=== PATIENT | male | born 1980 | race Caucasian/White ===

== ENCOUNTER 2016-07-21 07:50 | Observation (INO) ==
--- NOTE | 2016-07-21 08:01 | Emergency Department Note ---
Disposition Clinical Impression: SOB (shortness of breath) Hypertension Qualifiers: Hypertension type: renovascular hypertension Qualified Code(s): I15.0 - Renovascular hypertension Disposition: Admitted As Inpatient Condition: Good Referrals: Yandy Ahumada MD [Primary Care Provider] - Forms: ED Satisfaction Letter Time of Disposition: 09:17 General Adult HPI - General Chief complaint: ED Shortness of Breath/Dyspnea Stated complaint: IRENE Time Seen by Provider: 07/21/16 07:55 Source: patient, EMS Limitations: no limitations Nursing Notes Reviewed: Yes Vital Signs Reviewed: Yes - History of Present Illness HPI Narrative: 3 week history of congestion and shortness of breath. Has tried Z-Kameron twice with no relief. Complaining of increased abdominal girth. Is a dialysis patient. Pain Scale: 5 - Related Data Home Medications Medication Instructions Recorded Confirmed Aspirin 81 mg PO DAILY 12/17/14 04/29/15 Furosemide [Lasix] 80 mg PO HS 12/17/14 04/29/15 Lisinopril [Zestril] 10 mg PO DAILY 12/17/14 04/29/15 Metoprolol [Lopressor] 100 mg PO BID 12/17/14 04/29/15 Renal Vitamin [Renal Caps Softgel] 1 mg PO DAILY 12/17/14 04/29/15 Amlodipine [Norvasc] 5 mg PO DAILY 04/20/15 04/29/15 Calcitriol 0.25 mcg PO DAILY 04/20/15 04/29/15 Calcium Acetate [Phos-LO] 3,335 mg PO TIDWM 04/20/15 04/29/15 Darbepoetin [Aranesp] 200 mcg IV QMONTH 04/20/15 04/29/15 Omeprazole [PriLOSEC] 20 mg PO DAILY 04/20/15 04/29/15 Simvastatin [Zocor] 20 mg PO DAILY 04/20/15 04/29/15 Previous Rx's Medication Instructions Recorded OxyCODONE/APAP 5/325 [Percocet 1 each PO Q6HR PRN #30 tablet 04/20/15 5/325 MG] Docusate [Colace] 100 mg PO BID #60 capsule 04/26/15 Ondansetron [Zofran] 8 mg PO Q4H #30 tablet 03/27/16 Amoxicillin 875 mg PO BID #20 tablet 05/27/16 GuaiFENesin/Dextromethorphan 5 ml PO Q6H PRN #120 ml 05/27/16 [Robitussin Cough-Chest Dm Liq] Loratadine/Pseudophed (12 HR) 1 each PO BID #20 tab.er.12h 05/27/16 [Claritin D (12HR)] Allergies Allergy/AdvReac Type Severity Reaction Status Date / Time No Known Allergies Allergy Verified 05/27/16 12:01 All systems ED: reviewed and negative except as stated. Constitutional: Denies: fever, chills ENT ED: Reports: congestion Cardiovascular: Denies: chest pain, palpitations, syncope Respiratory: Reports: cough, dyspnea. Denies: wheezes Gastrointestinal: Reports: other (Feels like his abdomen is larger than normal.) . Denies: abdominal pain, nausea, vomiting, diarrhea Genitourinary: Denies: urgency, dysuria, frequency, hematuria Musculoskeletal: Denies: back pain, neck pain Neurological: Denies: headache Past Medical History - Past Medical History Medical history: Reports: diabetes, GERD, hypertension, renal disease Surgical history: Reports: cholecystectomy, herniorrhaphy, splenectomy, other Psychiatric history: Reports: no psych history - Social History Smoking Status: Never smoker Smokeless Tobacco Status: No Alcohol use: Reports: none Drug use: Reports: marijuana Physical Exam - General Limitations: no limitations General appearance: alert, in no apparent distress - Head Head exam: atraumatic, normocephalic - Eye Eye exam: Present: normal appearance, PERRL, EOMI. Absent: scleral icterus - ENT ENT exam: normal exam, normal oropharynx, mucous membranes moist - Neck Neck exam: Present: normal inspection, full ROM, trachea midline - Chest Chest inspection: Present: normal inspection, symmetric chest wall rise. Absent : tenderness - Respiratory Respiratory exam: Present: normal lung sounds bilaterally. Absent: respiratory distress - Cardiovascular Cardiovascular exam: Present: regular rate, normal rhythm, normal heart sounds - Abdominal Exam Abdominal exam: Present: soft, Non-Tender, other (I do not appreciate a large fluid wave. Patient is obese.). Absent: organomegaly - Extremities Exam Extremities exam: Present: normal inspection, full ROM, normal capillary refill. Absent: tenderness, pedal edema - Back Exam Back exam: Present: normal inspection, full ROM. Absent: tenderness - Neurological Exam Neurological exam: Present: alert, oriented X3 - Psychiatric Psychiatric exam: Present: normal affect, normal mood - Skin Skin exam: Present: warm, dry, intact, normal color. Absent: rash, cyanosis Course Course Narrative: Dialysis patient presents emergency department with a one-month history of shortness of breath. He is also complaining of an increase in his abdominal girth. Does have history of ascites. He is coming off his dialysis early every day this week due to migraines. Also complaining of uncontrolled hypertension for the past several months. States that there is been several medication changes. He denies any chest pain at this time. Basic lab work revealed hyperkalemia as well as an increased troponin I 0.05. His chest x-ray was read as normal. Lung sounds are clear heart sounds are normal. I do not appreciate a large fluid shift in his abdomen. He is not appear in distress at this time. We will admit patient for emergent dialysis today. Also for blood pressure control. - Consultations Consultation #1: Spoke with Dr Santiago. She is agreeable to admit Pt to the hospital for dialysis today. Time: 09:01 Consultation #2: Dr Rodriguez accepted patient in stable condition. Vital Signs Temperature 98.0 F 07/21/16 07:53 Pulse Rate 89 07/21/16 07:53 Respiratory Rate 18 07/21/16 07:53 Blood Pressure 210/120 07/21/16 07:53 O2 Sat by Pulse Oximetry 91 07/21/16 07:53 Temperature 98.0 F 07/21/16 07:53 Pulse Rate 89 07/21/16 07:53 Respiratory Rate 18 07/21/16 07:53 Blood Pressure 210/120 07/21/16 07:53 O2 Sat by Pulse Oximetry 91 07/21/16 07:53 Oxygen Delivery Oxygen Delivery Room Air Medical Decision Making - Medical Records Medical records reviewed: Yes I reviewed the patient's medical records. - Lab Data Lab results reviewed: Yes I reviewed the patient's lab results. Result diagrams: 07/21/16 08:07 07/21/16 08:07 Lab Results 07/21/16 07/21/16 07/21/16 Range/Units 08:07 08:07 08:07 WBC 12.6 H (4.3-11.1) K/mcL RBC 3.25 L (4.19-5.50) M/mcL Hgb 10.7 L (12.9-16.9) g/dL Hct 33.1 L (37.5-50.1) % MCV 101.8 H (83.0-100.0) fL MCH 32.9 (28.0-33.3) pg MCHC 32.3 (31.6-35.5) g/dL RDW 15.2 H (11.5-14.5) % Plt Count 356 (140-400) K/mcL MPV 10.2 (9.4-12.4) fL Immature Gran % 0.2 (0-4) % Seg Neutrophils % 60.9 % Lymphocytes % 21.7 % Monocytes % 12.3 % Eosinophils % 3.8 % Basophils % 1.1 % Neutrophils # 7.7 (1.6-8.9) K/mcL Lymphocytes # 2.7 (0.6-4.6) K/mcL Monocytes # 1.6 H (0.0-1.3) K/mcL Eosinophils # 0.5 (0.0-0.6) K/mcL Basophils # 0.1 (0.0-0.2) K/mcL Sodium 140 (136-145) mEq/L Potassium 6.0 H (3.5-4.5) mEq/L Chloride 99 (98-109) mEq/L Carbon Dioxide 26 (19-29) mEq/L BUN 98 H (8-26) mg/dL Creatinine 14.54 H (0.72-1.25) mg/dL Est GFR ( Amer) 5 L (> 60) Est GFR (Non-Af Amer) 4 L (> 60) BUN/Creatinine Ratio 7 (6-26) Glucose 98 (70-99) mg/dL Calculated Osmolality 320 H (280-300) Calcium 9.3 (8.6-10.8) mg/dL Total Bilirubin 0.8 (0.2-1.2) mg/dL AST 28 (5-34) Units/L ALT 23 (0-55) Units/L Alkaline Phosphatase 80 (38-126) Units/L Troponin I (0-0.03) ng/mL B-Natriuretic Peptide 781 H (0-100) pg/mL Serum Total Protein 7.3 (6.0-8.3) g/dL Albumin 3.6 (3.5-5.0) g/dL Globulin 3.7 H (2.4-3.5) g/dL Albumin/Globulin Ratio 1.0 L (1.1-2.2) /10/30 Range/Units 08:07 WBC (4.3-11.1) K/mcL RBC (4.19-5.50) M/mcL Hgb (12.9-16.9) g/dL Hct (37.5-50.1) % MCV (83.0-100.0) fL MCH (28.0-33.3) pg MCHC (31.6-35.5) g/dL RDW (11.5-14.5) % Plt Count (140-400) K/mcL MPV (9.4-12.4) fL Immature Gran % (0-4) % Seg Neutrophils % % Lymphocytes % % Monocytes % % Eosinophils % % Basophils % % Neutrophils # (1.6-8.9) K/mcL Lymphocytes # (0.6-4.6) K/mcL Monocytes # (0.0-1.3) K/mcL Eosinophils # (0.0-0.6) K/mcL Basophils # (0.0-0.2) K/mcL Sodium (136-145) mEq/L Potassium (3.5-4.5) mEq/L Chloride (98-109) mEq/L Carbon Dioxide (19-29) mEq/L BUN (8-26) mg/dL Creatinine (0.72-1.25) mg/dL Est GFR ( Amer) (> 60) Est GFR (Non-Af Amer) (> 60) BUN/Creatinine Ratio (6-26) Glucose (70-99) mg/dL Calculated Osmolality (280-300) Calcium (8.6-10.8) mg/dL Total Bilirubin (0.2-1.2) mg/dL AST (5-34) Units/L ALT (0-55) Units/L Alkaline Phosphatase (38-126) Units/L Troponin I 0.05 H* (0-0.03) ng/mL B-Natriuretic Peptide (0-100) pg/mL Serum Total Protein (6.0-8.3) g/dL Albumin (3.5-5.0) g/dL Globulin (2.4-3.5) g/dL Albumin/Globulin Ratio (1.1-2.2) - EKG Data EKG #1 EKG attestation: Yes I reviewed and interpreted this EKG. EKG results narrative: Normal sinus rhythm at a rate of 89. RI interval is 146. QRS duration is 100. QT is 374. QTC is 420. No signs of acute ischemia. No previous EKG to compare to.
[2016-07-21 08:16] LABS: Basophils # 0.1 K/mcL (0.0-0.2); Basophils % 1.1 %; Eosinophils # 0.5 K/mcL (0.0-0.6); Eosinophils % 3.8 %; Hematocrit 33.1 % (37.5-50.1); Hemoglobin 10.7 g/dL (12.9-16.9); Immature Granulocytes % 0.2 % (0-4); Lymphocytes # 2.7 K/mcL (0.6-4.6); Lymphocytes % 21.7 %; Mean Corpuscular HGB Conc 32.3 g/dL (31.6-35.5); Mean Corpuscular Hemoglobin 32.9 pg (28.0-33.3); Mean Corpuscular Volume 101.8 fL (83.0-100.0); Mean Platelet Volume 10.2 fL (9.4-12.4); Monocytes # 1.6 K/mcL (0.0-1.3); Monocytes % 12.3 %; Neutrophils # 7.7 K/mcL (1.6-8.9); Platelet Count 356 K/mcL (140-400); Red Blood Count 3.25 M/mcL (4.19-5.50); Red Cell Distribution Width 15.2 % (11.5-14.5); Segmented Neutrophils % 60.9 %
[2016-07-21 08:30] LABS: Albumin 3.6 g/dL (3.5-5.0); Bilirubin,Total 0.8 mg/dL (0.2-1.2); Calcium 9.3 mg/dL (8.6-10.8); Globulin 3.7 g/dL (2.4-3.5); Total Protein 7.3 g/dL (6.0-8.3)
--- NOTE | 2016-07-21 08:40 | Emergency Department Note ---
Disposition Clinical Impression: Hypertension, SOB (shortness of breath) Disposition: Admitted As Inpatient Condition: Good Referrals: Yandy Ahumada MD [Primary Care Provider] - Forms: ED Satisfaction Letter General Adult HPI - General Chief complaint: ED Shortness of Breath/Dyspnea Stated complaint: IRENE Time Seen by Provider: 07/21/16 07:55 Source: patient, EMS Limitations: no limitations Nursing Notes Reviewed: Yes Vital Signs Reviewed: Yes - History of Present Illness Pain Scale: 5 - Related Data Home Medications Medication Instructions Recorded Confirmed Aspirin 81 mg PO DAILY 12/17/14 04/29/15 Furosemide [Lasix] 80 mg PO HS 12/17/14 04/29/15 Lisinopril [Zestril] 10 mg PO DAILY 12/17/14 04/29/15 Metoprolol [Lopressor] 100 mg PO BID 12/17/14 04/29/15 Renal Vitamin [Renal Caps Softgel] 1 mg PO DAILY 12/17/14 04/29/15 Amlodipine [Norvasc] 5 mg PO DAILY 04/20/15 04/29/15 Calcitriol 0.25 mcg PO DAILY 04/20/15 04/29/15 Calcium Acetate [Phos-LO] 3,335 mg PO TIDWM 04/20/15 04/29/15 Darbepoetin [Aranesp] 200 mcg IV QMONTH 04/20/15 04/29/15 Omeprazole [PriLOSEC] 20 mg PO DAILY 04/20/15 04/29/15 Simvastatin [Zocor] 20 mg PO DAILY 04/20/15 04/29/15 Previous Rx's Medication Instructions Recorded OxyCODONE/APAP 5/325 [Percocet 1 each PO Q6HR PRN #30 tablet 04/20/15 5/325 MG] Docusate [Colace] 100 mg PO BID #60 capsule 04/26/15 Ondansetron [Zofran] 8 mg PO Q4H #30 tablet 03/27/16 Amoxicillin 875 mg PO BID #20 tablet 05/27/16 GuaiFENesin/Dextromethorphan 5 ml PO Q6H PRN #120 ml 05/27/16 [Robitussin Cough-Chest Dm Liq] Loratadine/Pseudophed (12 HR) 1 each PO BID #20 tab.er.12h 05/27/16 [Claritin D (12HR)] Allergies Allergy/AdvReac Type Severity Reaction Status Date / Time No Known Allergies Allergy Verified 05/27/16 12:01 Past Medical History - Past Medical History Medical history: Reports: diabetes, GERD, hypertension, renal disease Surgical history: Reports: cholecystectomy, herniorrhaphy, splenectomy, other Psychiatric history: Reports: no psych history - Social History Smoking Status: Never smoker Smokeless Tobacco Status: No Alcohol use: Reports: none Drug use: Reports: marijuana Physical Exam - General Limitations: no limitations General appearance: alert Course Vital Signs Temperature 98.0 F 07/21/16 07:53 Pulse Rate 89 07/21/16 07:53 Respiratory Rate 18 07/21/16 07:53 Blood Pressure 210/120 07/21/16 07:53 O2 Sat by Pulse Oximetry 91 07/21/16 07:53 Temperature 98.0 F 07/21/16 07:53 Pulse Rate 89 07/21/16 07:53 Respiratory Rate 18 07/21/16 07:53 Blood Pressure 210/120 07/21/16 07:53 O2 Sat by Pulse Oximetry 91 07/21/16 07:53 Oxygen Delivery Oxygen Delivery Room Air Medical Decision Making - MDM Narrative Medical decision making narrative: I examined this patient and my medical decision-making was reviewed with the [facility] LPN/PA/Advanced Practice Nurse/Resident Physician. I agree with the documented findings, disposition and treatment plan as described except to the extent set forth below. Patient was seen on arrival by EMS with Dr. Mtz, and agreed with evaluation and management plan, I supervised the care of the patient's stay. Patient is on dialysis is history of hypertension and poorly controlled. He has been having a cough he says been treated with antibiotics 2 and does feel much better. No chest pain and says a history of ascites. He is getting a workup today will speak with nephrology 1 refinish. As he supposed to dialyze today. He is in agreement with this plan. Chest X-Ray 07/21/16 07:55 IMPRESSION: No evidence of acute cardiopulmonary disease. D/ / Niko Clayton MD / Niko Clayton MD Interpreting Provider: Niko Clayton MD 09:15 hours. Spoke with nephrology, Dr. Santiago, were done ago had not admit the patient. That waiting be dialyzed - Lab Data Result diagrams: 07/21/16 08:07 07/21/16 08:07 Lab Results 07/21/16 07/21/16 07/21/16 Range/Units 08:07 08:07 08:07 WBC 12.6 H (4.3-11.1) K/mcL RBC 3.25 L (4.19-5.50) M/mcL Hgb 10.7 L (12.9-16.9) g/dL Hct 33.1 L (37.5-50.1) % MCV 101.8 H (83.0-100.0) fL MCH 32.9 (28.0-33.3) pg MCHC 32.3 (31.6-35.5) g/dL RDW 15.2 H (11.5-14.5) % Plt Count 356 (140-400) K/mcL MPV 10.2 (9.4-12.4) fL Immature Gran % 0.2 (0-4) % Seg Neutrophils % 60.9 % Lymphocytes % 21.7 % Monocytes % 12.3 % Eosinophils % 3.8 % Basophils % 1.1 % Neutrophils # 7.7 (1.6-8.9) K/mcL Lymphocytes # 2.7 (0.6-4.6) K/mcL Monocytes # 1.6 H (0.0-1.3) K/mcL Eosinophils # 0.5 (0.0-0.6) K/mcL Basophils # 0.1 (0.0-0.2) K/mcL Sodium 140 (136-145) mEq/L Potassium 6.0 H (3.5-4.5) mEq/L Chloride 99 (98-109) mEq/L Carbon Dioxide 26 (19-29) mEq/L BUN 98 H (8-26) mg/dL Creatinine 14.54 H (0.72-1.25) mg/dL Est GFR ( Amer) 5 L (> 60) Est GFR (Non-Af Amer) 4 L (> 60) BUN/Creatinine Ratio 7 (6-26) Glucose 98 (70-99) mg/dL Calculated Osmolality 320 H (280-300) Calcium 9.3 (8.6-10.8) mg/dL Total Bilirubin 0.8 (0.2-1.2) mg/dL AST 28 (5-34) Units/L ALT 23 (0-55) Units/L Alkaline Phosphatase 80 (38-126) Units/L Troponin I (0-0.03) ng/mL B-Natriuretic Peptide 781 H (0-100) pg/mL Serum Total Protein 7.3 (6.0-8.3) g/dL Albumin 3.6 (3.5-5.0) g/dL Globulin 3.7 H (2.4-3.5) g/dL Albumin/Globulin Ratio 1.0 L (1.1-2.2) /10/30 Range/Units 08:07 WBC (4.3-11.1) K/mcL RBC (4.19-5.50) M/mcL Hgb (12.9-16.9) g/dL Hct (37.5-50.1) % MCV (83.0-100.0) fL MCH (28.0-33.3) pg MCHC (31.6-35.5) g/dL RDW (11.5-14.5) % Plt Count (140-400) K/mcL MPV (9.4-12.4) fL Immature Gran % (0-4) % Seg Neutrophils % % Lymphocytes % % Monocytes % % Eosinophils % % Basophils % % Neutrophils # (1.6-8.9) K/mcL Lymphocytes # (0.6-4.6) K/mcL Monocytes # (0.0-1.3) K/mcL Eosinophils # (0.0-0.6) K/mcL Basophils # (0.0-0.2) K/mcL Sodium (136-145) mEq/L Potassium (3.5-4.5) mEq/L Chloride (98-109) mEq/L Carbon Dioxide (19-29) mEq/L BUN (8-26) mg/dL Creatinine (0.72-1.25) mg/dL Est GFR ( Amer) (> 60) Est GFR (Non-Af Amer) (> 60) BUN/Creatinine Ratio (6-26) Glucose (70-99) mg/dL Calculated Osmolality (280-300) Calcium (8.6-10.8) mg/dL Total Bilirubin (0.2-1.2) mg/dL AST (5-34) Units/L ALT (0-55) Units/L Alkaline Phosphatase (38-126) Units/L Troponin I 0.05 H* (0-0.03) ng/mL B-Natriuretic Peptide (0-100) pg/mL Serum Total Protein (6.0-8.3) g/dL Albumin (3.5-5.0) g/dL Globulin (2.4-3.5) g/dL Albumin/Globulin Ratio (1.1-2.2)
[2016-07-21] MEDS ORDERED: Calcium Gluconate 1,000 MG in D5% in Water 100 ML IVPB ONE (08:43)
[2016-07-21] MEDS ORDERED: Acetaminophen 325 MG TABLET PO ONE (09:13)
[2016-07-21] MEDS ORDERED: Naloxone 0.4 MG/ML INJ IVP PRN (10:14)
[2016-07-21] MEDS ORDERED: amLODIPine 5 MG TABLET PO SCH (10:15)
[2016-07-21] MEDS ORDERED: 0.9 % Sodium Chloride 250 ML IVC PRN (11:47)
--- NOTE | 2016-07-21 11:59 | Internal Med History&Physical ---
Date of Encounter: 07/21/16 Time of Encounter: 11:55 Assessment and Plan (1) Hypertensive urgency Current visit: Yes Status: Acute BP on presentation is 210/120. currently on amlodipine and BB he says he hasnt taken his BP meds for today will restart his home meds has room to go up on amlod and BB> will watch BP after HD, if still high can go up on the doses. (2) ESRD (end stage renal disease) on dialysis Current visit: No Status: Chronic follows with DR. Santiago. planned for HD today hyperkalemic at 6.0, he received one dose of calcium gluconate at ED. repeat chem after HD. (3) Type 2 diabetes mellitus Current visit: No Status: Chronic Qualifiers: Diabetes mellitus complication status: with kidney complications Diabetes mellitus complication detail: with chronic kidney disease Diabetes mellitus senior operator insulin use: without assisted use Chronic kidney disease stage: on chronic dialysis Qualified Code(s): E11.22 - Type 2 diabetes mellitus with diabetic chronic kidney disease; N18.6 - End stage renal disease; Z99.2 - Dependence on renal dialysis (4) Elevated troponin Current visit: Yes Status: Acute troponin is mildly elevated at 0.05, in the setting of ESRD, less likely ACS, denies any chest pain. Internal Medicine - H&P: HPI Chief complaint: sob Admitted From: Home Plans for Post Hospital Care: Home History of present illness: Mr. Sosa is a 36 year old male with ESRD on HD presents emergency department with a one-month history of shortness of breath. He is also complaining of an increase in his abdominal girth. Does have history of ascites. He says that he is coming off his dialysis early every day this week due to migraines. Also complaining of uncontrolled hypertension for the past several months. he says that he recently moved here and before that his BP used to be always on the lower side after HD( 70/50s), due to that he was not on any BP meds.however ever since he moved here and started HD, his BP is always elevated and States that there is been several medication changes. He denies any chest pain at this time. Basic lab work revealed hyperkalemia as well as an increased troponin I 0.05. his last HD was on thursday and he says he only did 2 hrs due to headache and nausea. HE says he has not been getting adequate HD for the last couple of weeks and feels that he is fluid overloaded. he takes his meds regularly and he denies missing HD. His chest x-ray was read as normal. Lung sounds are clear heart sounds are normal. I do not appreciate a large fluid shift in his abdomen. Past Med Surg Social Fam HX - Past Medical History Medical history: diabetes, GERD, hypertension, renal disease Psychiatric history: no psych history - Past Surgical History Surgical History: cholecystectomy, herniorrhaphy, splenectomy, other - Social History Smoking Status: Never smoker Smokeless Tobacco Status: No Alcohol use: none Drug use: marijuana - Family History Mother Hx Family Cardiac Disorders: Yes (hypertension) Father Hx Family Endocrine Disorder: Yes (diabetes) Internal Medicine - H&P: Meds Aspirin 81 mg PO DAILY 12/17/14 [History] Furosemide [Lasix] 80 mg PO HS 12/17/14 [History] Amlodipine [Norvasc] 5 mg PO DAILY 04/20/15 [History] Calcium Acetate [Phos-LO] 3,335 mg PO TIDWM 04/20/15 [History] Omeprazole [PriLOSEC] 20 mg PO DAILY 04/20/15 [History] Carvedilol [Carvedilol] 12.5 mg PO BID 07/21/16 [History] Cinacalcet [Sensipar] 30 mg PO DAILY 07/21/16 [History] Folic Acid/Vit Bcomp,C [Dialyvite Tablet] 1 each PO DAILY 07/21/16 [History] Lactobacillus Combination No.8 [Adult Probiotic] 1 each PO DAILY 07/21/16 [ History] Sevelamer [Renvela] 3,200 mg PO TIDAC 07/21/16 [History] Allergies No Known Allergies Allergy (Verified 05/27/16 12:01) All Systems PM: A 10-system review of systems was performed and is negative for pertinent findings except as documented above in the HPI. - EENT Eyes: no change in vision, no discharge, no pain, no photophobia Ears: no ear discharge, no ear pain, no tinnitus Nose, mouth and throat: no dysphagia, no nasal discharge, no neck pain, no sore throat - Cardiovascular Cardiovascular ROS IM: dyspnea - Respiratory Respiratory: dyspnea on exertion, no cough, no dyspnea, no wheezing, no excessive phlegm production - Gastrointestinal Gastrointestinal: no abdominal pain, no diarrhea, no hematemesis, no hematochezia, no melena, no nausea, no vomiting - Musculoskeletal Musculoskeletal ROS IM: no numbness, no tingling - Constitutional Vitals: Temp Pulse Resp BP Pulse Ox 97.6 F 85 18 161/87 93 07/21/16 11:47 07/21/16 11:47 07/21/16 11:47 07/21/16 11:47 07/21/16 11:47 General appearance: Present: A&O X 3, no acute distress Exam: nneck- supple chest- b/l clear, no added sounds CVS- s1 and s2, no m/r/g abd-soft, non tender, bs are present, no ascitis present ext- no edema neuro- no focal defecits. Internal Med - H&P Results - Labs CBC & Chem 7: 07/21/16 08:07 07/21/16 08:07
[2016-07-21] MEDS ORDERED: 0.9 % Sodium Chloride 1,000 ML PRIME SCH (12:00)
[2016-07-21] MEDS ORDERED: Calcium Acetate 667 MG CAPSULE PO SCH (12:00)
--- NOTE | 2016-07-21 13:47 | Nephrology Consult Note ---
Date of Encounter: 07/21/16 Time of Encounter: 13:47 Assessment and Plan (1) ESRD (end stage renal disease) on dialysis Status: Chronic Will initiate HD this am with UF goal of 4-5kg as tolerated which should also help his BP readings Will plan for UF only tomorrow as well with gaol of 4-5kg and hopefully bring him back to his baseline dry weight Lytes WNL Will resume meds (2) Hypertension Status: Chronic Likely volume mediated as he is overloaded. Continue antihypertensives and adjust as needed. UF vis HD today and a second UF tomorrow should greatly help his BP Qualifiers: Hypertension type: essential hypertension Qualified Code(s): I10 - Essential (primary) hypertension (3) SOB (shortness of breath) Status: Acute Volume mediated, should resolve with HD and UF History of Present Illness - Reason for Consult Consult date: 07/21/16 end stage renal disease Requesting physician: Lissa Mtz - History of Present Illness 36 y o male with PMH of DM, HTN and ESRD on HD admitted on thursday morning after last HD on thursday with acute onset of SOB. Per patient, he left thursday HD session early due to headaches and did not have adequate fluid removal that day and the previous HD session as well. He feels "swollen" in his abdominal area not his LE as is typical for him. He denies any chest pain, N,D. His BP reading were elevated up to 200s systolic on presentation. Past Med Surg Social Fam HX - Past Medical History Medical history: diabetes, GERD, hypertension, renal disease Psychiatric history: no psych history - Past Surgical History Surgical History: cholecystectomy, herniorrhaphy, splenectomy, other - Social History Smoking Status: Never smoker Smokeless Tobacco Status: No Alcohol use: none Drug use: marijuana - Family History Mother Hx Family Cardiac Disorders: Yes (hypertension) Father Hx Family Endocrine Disorder: Yes (diabetes) Medications and Allergies Aspirin 81 mg PO DAILY 12/17/14 [History] Furosemide [Lasix] 40 mg PO HS 12/17/14 [History] Calcium Acetate [Phos-LO] 2,001 mg PO TIDWM 04/20/15 [History] Omeprazole [PriLOSEC] 20 mg PO DAILY 04/20/15 [History] Calcium Acetate [Phos-LO] 1,334 mg PO AD 07/21/16 [History] Cinacalcet [Sensipar] 30 mg PO DAILY 07/21/16 [History] Folic Acid/Vit Bcomp,C [Dialyvite Tablet] 1 tab PO DAILY 07/21/16 [History] Lactobacillus Combination No.8 [Adult Probiotic] 1 cap PO DAILY 07/21/16 [ History] Sevelamer [Renvela] 3,200 mg PO TIDWM 07/21/16 [History] Lisinopril [Zestril] 10 mg PO DAILY #30 tablet 07/23/16 [Rx] Metoprolol [Lopressor] 100 mg PO BID #60 tablet 07/23/16 [Rx] amLODIPine [Norvasc] 10 mg PO DAILY #30 tablet 07/23/16 [Rx] cloNIDine HCl [CloNIDine HCl] 0.1 mg PO TID #90 tablet 07/23/16 [Rx] Allergies No Known Allergies Allergy (Verified 05/27/16 12:01) Review of Systems All Systems: reviewed and no additional remarkable complaints except as stated ( 10 systems reviewed) Exam - Vital Signs Vital signs: Initial Vital Signs Pulse Ox 95 07/21/16 07:51 Vital Signs - Last 8 Hours Temp Pulse Resp BP Pulse Ox 07/21/16 12:13 93 07/21/16 11:47 97.6 F 85 18 161/87 93 07/21/16 10:11 0 F L 18 183/82 Intake and Output 07/20/16 07/21/16 07/21/16 23:59 07:59 15:59 Intake Total 0 / 0 Balance 0 / 0 Intake: Oral 0 / 0 Other: Blood Glucose* 91 - General Appearance General appearance: chronically ill (NAD) EENT: ATNC, mucous membranes moist Neck: no JVD, supple Additional Comments: good areation with decreased BS bilat Cardiology: no edema, normal S1, normal S2 - Dialysis Access Dialysis Vascular Access: Arteriovenous Fistula thrill: Yes bruit: Yes Gastrointestinal: no tenderness, no guarding, obese Integumentary: warm and dry Neurologic: no focal deficit Musculoskeletal: no deformities Psychiatric: mood/affect appropriate, cooperative Results - Lab Results 07/22/16 05:15 07/22/16 05:15 Most recent lab results Calcium 9.3 mg/dL (8.6-10.8) 07/21/16 08:07 Consult Discharge Plan - Plan Instructions: Lisinopril (By mouth), Clonidine (By mouth), Amlodipine (By mouth ), Hypertensive Crisis (DC) Referrals: Yandy Ahumada MD [Primary Care Provider] - 08/05/16 8:00 am Prescriptions: amLODIPine [Norvasc] 10 mg PO DAILY #30 tablet cloNIDine HCl [CloNIDine HCl] 0.1 mg PO TID #90 tablet Lisinopril [Zestril] 10 mg PO DAILY #30 tablet Metoprolol [Lopressor] 100 mg PO BID #60 tablet
[2016-07-21] MEDS ORDERED: Ondansetron 4 MG/2 ML VIAL IVP PRN (18:02)
[2016-07-21] MEDS ORDERED: Ondansetron 4 MG/2 ML VIAL ONE (18:09)
[2016-07-21] MEDS: Calcium Acetate 667 MG CAPSULE PO SCH (18:15)
--- NOTE | 2016-07-21 19:39 | Electrocardiograph Report ---
[employer] [facility] Test Date: 2016-07-21 Pat Name: Ramsey Sosa Department: 102 Room: 2A43 Gender: M [employer] Investigator: Riccardo : 1980 Requested By: Maury aNvarro Order Number: [id number] Reading MD: Whit Davis DO Measurements Intervals [place] Rate: 89 P: 18 TX: 146 QRS: -8 QRSD: 100 T: 29 QT: 374 QTc: 420 Interpretive Statements SINUS RHYTHM Electronically Signed On 07-21-2016 19:38:09 EDT by Whit Davis DO
[2016-07-21] MEDS: Metoprolol 100 MG TABLET PO SCH (21:37)
[2016-07-21] MEDS: Furosemide 40 MG TABLET PO SCH (21:38)
[2016-07-21] MEDS ORDERED: *HR* Labetalol 20 MG/4 ML SYRINGE IVP PRN (21:55)
[2016-07-21] MEDS: Acetaminophen 325 MG TABLET PO PRN (23:32)
[2016-07-22 05:51] LABS: Basophils # 0.1 K/mcL (0.0-0.2); Basophils % 0.8 %; Eosinophils # 0.3 K/mcL (0.0-0.6); Eosinophils % 2.3 %; Hematocrit 32.4 % (37.5-50.1); Hemoglobin 10.5 g/dL (12.9-16.9); Immature Granulocytes % 0.3 % (0-4); Lymphocytes # 2.4 K/mcL (0.6-4.6); Lymphocytes % 20.5 %; Mean Corpuscular HGB Conc 32.4 g/dL (31.6-35.5); Mean Corpuscular Hemoglobin 32.6 pg (28.0-33.3); Mean Corpuscular Volume 100.6 fL (83.0-100.0); Mean Platelet Volume 10.4 fL (9.4-12.4); Monocytes # 1.4 K/mcL (0.0-1.3); Monocytes % 11.7 %; Neutrophils # 7.5 K/mcL (1.6-8.9); Platelet Count 330 K/mcL (140-400); Red Blood Count 3.22 M/mcL (4.19-5.50); Red Cell Distribution Width 14.9 % (11.5-14.5); Segmented Neutrophils % 64.4 %
[2016-07-22 06:01] LABS: Calcium 9.2 mg/dL (8.6-10.8); Magnesium 2.2 mg/dL (1.6-2.6); Potassium 4.8 mEq/L (3.5-4.5)
[2016-07-22] MEDS: Aspirin 81 MG TAB.CHEW PO SCH (08:00)
[2016-07-22] MEDS: Metoprolol 100 MG TABLET PO SCH ×2 (08:00→21:26)
[2016-07-22] MEDS: Calcium Acetate 667 MG CAPSULE PO SCH ×3 (08:01→17:19)
[2016-07-22] MEDS: amLODIPine 5 MG TABLET PO SCH ×2 (08:03→08:05)
[2016-07-22] MEDS: Acetaminophen 325 MG TABLET PO PRN (08:09)
[2016-07-22] MEDS: cloNIDine HCl 0.1 MG TABLET PO SCH ×3 (09:15→21:26)
[2016-07-22] MEDS ORDERED: 0.9 % Sodium Chloride 250 ML IVC PRN (09:33)
--- NOTE | 2016-07-22 10:37 | Internal Med Progress Note ---
Date of Encounter: 07/22/16 Time of Encounter: 10:34 - Assessment and plan (1) Hypertensive urgency Current Visit: Yes Status: Acute Assessment and plan: BP still high at 200/121 have increased the amlod to 10 mg also on lisinopril and metoprolol will add clonidine 0.1 mg tid monitor BP, have IV hydralazine prn. (2) ESRD (end stage renal disease) on dialysis Current Visit: No Status: Chronic Assessment and plan: willl undergo regular HD, Dr. Santiago following last HD yesterday, will follow renal recommendations (3) Type 2 diabetes mellitus Current Visit: No Status: Chronic Qualifiers: Diabetes mellitus complication status: with kidney complications Diabetes mellitus complication detail: with chronic kidney disease Diabetes mellitus parts counterman insulin use: without custodial use Chronic kidney disease stage: on chronic dialysis Qualified Code(s): E11.22 - Type 2 diabetes mellitus with diabetic chronic kidney disease; N18.6 - End stage renal disease; Z99.2 - Dependence on renal dialysis (4) Elevated troponin Current Visit: Yes Status: Acute Assessment and plan: most likely in the setting of ESRD, clinically no chest pain. - Time Spent With Patient 25 - 35 minutes - Subjective Interval history: patient admitted for hypertensive urgency, status post hemodialysis yesterday. Patient seen at the bedside this morning, reports that his headache is better. Denies any other complaints for today. He got out of dialysis earlier yesterday due to headache and nausea. Blood pressure noted to be 200/121 this morning. - Constitutional Vitals: Temp Pulse Resp BP Pulse Ox 98.0 F 79 18 200/121 93 07/22/16 07:36 07/22/16 07:36 07/22/16 07:36 07/22/16 07:36 07/22/16 07:36 General appearance: Present: A&O X 3, no acute distress Exam: neck- supple chest- b/l clear, no added sounds CVS-s1 and s2, no m/r/g abd-soft, non tender, bs are present ext- no edema neuro- no focal deficits. Internal Medicine: Result - Labs CBC & Chem 7: 07/22/16 05:15 07/22/16 05:15 Labs: Short CBC 07/22/16 Range/Units 05:15 WBC 11.7 H (4.3-11.1) K/mcL Hgb 10.5 L (12.9-16.9) g/dL Hct 32.4 L (37.5-50.1) % Plt Count 330 (140-400) K/mcL Neutrophils # 7.5 (1.6-8.9) K/mcL BMP 07/21/16 07/22/16 15:36 05:15 Sodium 139 Potassium 4.1 D 4.8 H Chloride 96 L Carbon Dioxide 31 H BUN 57 H D Creatinine 10.69 H Glucose 126 H Calcium 9.2 Consult Discharge Plan - Plan Referrals: Yandy Ahumada MD [Primary Care Provider] -
--- NOTE | 2016-07-22 10:46 | Nephrology Progress Note ---
Date of Encounter: 07/22/16 Time of Encounter: 10:40 Subjective Interval history: Pt seen and examined. s/p HD yesterday with 4liters removed but quit slightly early due to headache. BP readings still elevated up to 200s systolic despite several BP meds. Objective - Vital Signs Vital signs: Vital Signs Temp Pulse Resp BP Pulse Ox 07/22/16 07:36 98.0 F 79 18 200/121 93 07/22/16 03:46 98.3 F 80 18 173/89 90 07/21/16 23:31 98.0 F 74 18 186/98 96 07/21/16 21:43 90 170/105 07/21/16 18:48 97.6 F 89 18 188/111 95 07/21/16 18:17 191/109 07/21/16 17:20 98.4 F 18 145/109 07/21/16 17:15 129/80 07/21/16 17:00 125/78 07/21/16 16:45 106/88 07/21/16 16:30 132/100 07/21/16 16:15 143/92 07/21/16 16:00 136/105 07/21/16 15:49 98.4 F 83 18 136/105 93 07/21/16 15:45 171/117 07/21/16 15:30 163/86 07/21/16 15:15 177/124 07/21/16 15:00 193/80 07/21/16 14:45 194/110 07/21/16 14:30 189/112 07/21/16 14:15 189/112 07/21/16 14:00 98.4 F 18 190/111 07/21/16 12:13 93 07/21/16 11:47 97.6 F 85 18 161/87 93 Intake and Output 07/21/16 07/22/16 07/22/16 23:59 07:59 15:59 Intake Total 200 / 200 300 / 300 Output Total 4578 / 4578 Balance -4378 / -4378 300 / 300 Intake: Oral 200 / 200 300 / 300 Output: Urine 0 / 0 Total Dialysis Output 4578 / 4578 Other: Meal Dinner Percent of Meal Consumed 50% Weight 127.913 kg Blood Glucose* 127 95 Hemodialysis Net Fluid 3978 Removed (mL) Patient Weight 07/22/16 23:59 Weight 127.913 kg - General Appearance General appearance: Present: well-developed, well-nourished EENT: Present: ATNC, mucous membranes moist Neck: Present: no JVD, supple Respiratory: Present: clear Cardiology: Present: no edema, normal S1, normal S2 Dialysis Vascular Access: Arteriovenous Fistula thrill: Yes bruit: Yes Gastrointestinal: Present: no tenderness, no guarding, obese Integumentary: Present: no rash, warm and dry Neurologic: Present: no focal deficit Musculoskeletal: Present: no deformities Psychiatric: Present: mood/affect appropriate, cooperative - Lab 07/22/16 05:15 07/22/16 05:15 Most recent lab results Calcium 9.2 mg/dL (8.6-10.8) 07/22/16 05:15 Phosphorus 7.0 mg/dL (2.3-4.7) H 07/22/16 05:15 Magnesium 2.2 mg/dL (1.6-2.6) 07/22/16 05:15 Consult Discharge Plan - Plan Referrals: Yandy Ahumada MD [Primary Care Provider] -
[2016-07-22] MEDS: Furosemide 40 MG TABLET PO SCH (21:26)
[2016-07-23 07:18] VITALS: BP 147/75
[2016-07-23] MEDS: Calcium Acetate 667 MG CAPSULE PO SCH (08:02)
[2016-07-23] MEDS: Aspirin 81 MG TAB.CHEW PO SCH (08:03)
[2016-07-23] MEDS: Metoprolol 100 MG TABLET PO SCH (08:03)
[2016-07-23] MEDS: amLODIPine 5 MG TABLET PO SCH (08:03)
[2016-07-23] MEDS: cloNIDine HCl 0.1 MG TABLET PO SCH (08:03)
--- NOTE | 2016-07-23 08:19 | Discharge Summary ---
Date of Encounter: 07/23/16 Time of Encounter: 08:16 - Discharge Diagnosis (1) Hypertensive urgency Priority: Primary Status: Acute (2) ESRD (end stage renal disease) on dialysis Priority: Secondary Status: Chronic (3) Type 2 diabetes mellitus Priority: Secondary Status: Chronic Qualifiers: Diabetes mellitus complication status: with kidney complications Diabetes mellitus complication detail: with chronic kidney disease Diabetes mellitus penitentiary insulin use: without parts counterman use Chronic kidney disease stage: on chronic dialysis Qualified Code(s): E11.22 - Type 2 diabetes mellitus with diabetic chronic kidney disease; N18.6 - End stage renal disease; Z99.2 - Dependence on renal dialysis (4) Elevated troponin Priority: Primary Status: Acute - Discharge Medications Prescriptions: amLODIPine [Norvasc] 10 mg PO DAILY #30 tablet cloNIDine HCl [CloNIDine HCl] 0.1 mg PO TID #90 tablet Lisinopril [Zestril] 10 mg PO DAILY #30 tablet Metoprolol [Lopressor] 100 mg PO BID #60 tablet Home Medications: Aspirin 81 mg PO DAILY 12/17/14 [History] Furosemide [Lasix] 40 mg PO HS 12/17/14 [History] Calcium Acetate [Phos-LO] 2,001 mg PO TIDWM 04/20/15 [History] Omeprazole [PriLOSEC] 20 mg PO DAILY 04/20/15 [History] Calcium Acetate [Phos-LO] 1,334 mg PO AD 07/21/16 [History] Cinacalcet [Sensipar] 30 mg PO DAILY 07/21/16 [History] Folic Acid/Vit Bcomp,C [Dialyvite Tablet] 1 tab PO DAILY 07/21/16 [History] Lactobacillus Combination No.8 [Adult Probiotic] 1 cap PO DAILY 07/21/16 [ History] Sevelamer [Renvela] 3,200 mg PO TIDWM 07/21/16 [History] Lisinopril [Zestril] 10 mg PO DAILY #30 tablet 07/23/16 [Rx] Metoprolol [Lopressor] 100 mg PO BID #60 tablet 07/23/16 [Rx] amLODIPine [Norvasc] 10 mg PO DAILY #30 tablet 07/23/16 [Rx] cloNIDine HCl [CloNIDine HCl] 0.1 mg PO TID #90 tablet 07/23/16 [Rx] Allergies/Adverse Reactions: Allergies No Known Allergies Allergy (Verified 05/27/16 12:01) Date of admission: 07/21/16 09:34 Primary care physician: Yandy Ahumada MD Consults: 07/21/16 12:00 Consult to Dialysis [CONS] ONCE 07/22/16 09:45 Consult to Dialysis [CONS] ONCE Discharging clinician: Nicole Harp Anticipated date of discharge: 07/23/16 - Patient Status Disposition: Home, Self-Care Condition: Fair Functional capacity at discharge: independent ambulation Overall status at discharge: patient is back to baseline - Discharge Instructions Instructions: Lisinopril (By mouth), Clonidine (By mouth), Amlodipine (By mouth ), Hypertensive Crisis (DC) Follow Up With: Yandy Ahumada MD [Primary Care Provider] - 08/05/16 8:00 am - Diet and Activity Activity: resume usual activities as tolerated Diet: other (renal diet) Interval History: Mr. Sosa is a 36 year old male with ESRD on HD presents emergency department with a one-month history of shortness of breath. He is also complaining of an increase in his abdominal girth. He says that he is coming off his dialysis early every day this week due to migraines. Also complaining of uncontrolled hypertension for the past several months. he says that he recently moved here and before that his BP used to be always on the lower side after HD( 70/50s), due to that he was not on any BP meds.however ever since he moved here and started HD, his BP is always elevated and States that there is been several medication changes. Basic lab work revealed hyperkalemia as well as an increased troponin I 0.05. he was admitted for HTN Urgency and possible volume overload from inadequate HD. he takes his meds regularly and he denies missing HD. His chest x-ray was read as normal. HE underwent HD the same day, BP meds was adjusted, amlod was changed to 10 mg and clonidine has been added. there has been much imporvement in BP with henna current BP meds regimen, his headache is better. he is being dc in stable condition and will follow up with Dr. Santiago as OP. Hospital course: Mr. Sosa is a 36 year old male Time spent discussing smoking cessation with patient: more than 10 minutes - Time Spent with Patient Total time spent providing and/or coordinating discharge services: Greater than 30 minutes - Constitutional Vitals: Temp Pulse Resp BP Pulse Ox 97.6 F 68 13 147/75 94 07/23/16 07:12 07/23/16 07:12 07/23/16 07:12 07/23/16 07:12 07/23/16 07:12 General appearance: Present: A&O X 3, no acute distress Exam: nneck- supple chest- b/l clear, no added sounds CVS- s1 and s2, no m/r/g abd-soft, non tender, bs are present, no ascitis present ext- no edema neuro- no focal defecits.
== END 2016-07-23 08:56 | disposition home or self-care (01) ==
LOC: EMEROO 07:50 → 2ANU 07:50
PROVIDERS: ADMIT Internal Medicine Endocrinology, Diabetes & Metabolism; ATTEND Internal Medicine

== ENCOUNTER 2020-04-03 22:54 | Inpatient (IN) ==
[2020-04-03] MEDS ORDERED: 0.9 % Sodium Chloride 1,000 ML IVC ONE (23:02)
[2020-04-03] MEDS ORDERED: Metoclopramide 10 MG/2 ML VIAL IVP ONE (23:02)
[2020-04-03 23:30] LABS: Prothrombin Time 11.9 Seconds (9.4-12.1)
[2020-04-03 23:33] LABS: Basophils # 0.1 K/mcL (0.0-0.2); Eosinophils % 0.3 %; Hematocrit 49.9 % (37.5-50.1); Immature Granulocytes % 0.4 % (0-4); Lymphocytes # 1.3 K/mcL (0.6-4.6); Lymphocytes % 16.9 %; Mean Corpuscular HGB Conc 32.1 g/dL (31.6-35.5); Mean Corpuscular Hemoglobin 28.5 pg (28.0-33.3); Mean Corpuscular Volume 88.8 fL (83.0-100.0); Mean Platelet Volume 10.2 fL (9.4-12.4); Monocytes # 1.6 K/mcL (0.0-1.3); Platelet Count 272 K/mcL (140-400); Red Blood Count 5.62 M/mcL (4.19-5.50); Red Cell Distribution Width 16.1 % (11.5-14.5); Segmented Neutrophils % 60.4 %; White Blood Count 7.7 K/mcL (4.3-11.1)
[2020-04-03] MEDS ORDERED: Acetaminophen 325 MG TABLET PO ONE (23:37)
[2020-04-03 23:43] LABS: Neutrophils # 4.7 K/mcL (1.6-8.9)
[2020-04-03 23:47] LABS: Albumin 3.9 g/dL (3.5-5.7); Bilirubin,Direct 0.5 mg/dL (0.0-0.2); Bilirubin,Indirect 0.6 mg/dL (0.0-1.0); Bilirubin,Total 1.1 mg/dL (0.3-1.0); Calcium 10.1 mg/dL (8.6-10.3); Potassium 4.6 mEq/L (3.5-5.1); Total Protein 7.9 g/dL (6.4-8.9)
[2020-04-04 00:19] LABS: Bacteria,Urine Few per hpf (None-Few); Bilirubin,Urine Negative (Negative); Blood,Urine Small (Negative); Clarity,Urine Clear (Clear); Color,Urine Light-Yellow (Yellow); Glucose,Urine (UA) Normal (Normal); Ketones,Urine Negative (Negative); Leukocyte Esterase,Urine Negative (Negative); Mucus,Urine Few per lpf (None-Few); Nitrite,Urine Negative (Negative); Protein,Urine 30 mg/dL (Neg-Trace); Specific Gravity,Urine 1.016 (1.010-1.025); Urobilinogen,Urine Normal (Normal); WBC,Urine 0-3 per hpf (0-3)
[2020-04-04 00:24] LABS: Anisocytosis 1+ (Not Present); Macrocytosis Present (Not Present); Platelet Estimate Normal (Normal)
[2020-04-04] MEDS ORDERED: Vancomycin 2,000 MG/520 ML IV.SOLN IVPB ONE (01:00)
[2020-04-04] MEDS ORDERED: Piperacillin/Tazobactam 3.375 GM in 0.9 % Sodium Chloride Mini Bag 100 ML IVPB ONE (01:00)
[2020-04-04 03:52] LABS: Influenza A PCR Negative (Negative); Influenza B PCR Negative (Negative); Resp. Syncytial Virus PCR Negative (Negative)
[2020-04-04 03:58] LABS: SARS-CoV-2 by PCR (In House) Negative (Negative)
[2020-04-04] MEDS ORDERED: Naloxone 0.4 MG/ML INJ IVP PRN (05:31)
[2020-04-04 06:34] LABS: Basophils # 0.1 K/mcL (0.0-0.2); Eosinophils % 0.1 %; Immature Granulocytes % 0.6 % (0-4); Lymphocytes # 2.4 K/mcL (0.6-4.6); Lymphocytes % 30.1 %; Mean Corpuscular HGB Conc 31.3 g/dL (31.6-35.5); Mean Corpuscular Hemoglobin 27.4 pg (28.0-33.3); Mean Corpuscular Volume 87.8 fL (83.0-100.0); Mean Platelet Volume 9.7 fL (9.4-12.4); Monocytes % 24.3 %; Neutrophils # 3.5 K/mcL (1.6-8.9); Nucleated Red Blood Cells 0.4 /100 WBC (0); Platelet Count 272 K/mcL (140-400); Red Blood Count 5.47 M/mcL (4.19-5.50); Red Cell Distribution Width 15.9 % (11.5-14.5); Segmented Neutrophils % 43.9 %
[2020-04-04 06:35] LABS: INR 1.1; Prothrombin Time 12.4 Seconds (9.4-12.1)
[2020-04-04 06:44] LABS: Monocytes # 1.9 K/mcL (0.0-1.3)
[2020-04-04] MEDS: Acetaminophen 325 MG TABLET PO PRN ×2 (07:01→20:59)
[2020-04-04] MEDS: 0.9 % Sodium Chloride 1,000 ML IVC SCH ×2 (07:02→15:36)
[2020-04-04] MEDS: amLODIPine 5 MG TABLET PO SCH (07:05)
[2020-04-04] MEDS: Ondansetron 4 MG/2 ML VIAL IVP PRN (07:06)
[2020-04-04 07:09] LABS: Albumin 3.6 g/dL (3.5-5.7); Bilirubin,Total 0.9 mg/dL (0.3-1.0); Calcium 9.5 mg/dL (8.6-10.3); Globulin 3.6 g/dL (2.4-3.5); Magnesium 1.3 mg/dL (1.6-2.6); Potassium 4.3 mEq/L (3.5-5.1); Total Protein 7.2 g/dL (6.4-8.9)
[2020-04-04] MEDS ORDERED: *HR* Dextrose 50 % in Water (Vial) 50 ML VIAL IVP PRN (13:06)
[2020-04-04] MEDS ORDERED: Dextrose Gel 15 GM/37.5 ML TUBE PO PRN ×2 (13:06)
[2020-04-04] MEDS ORDERED: D5% in Water 1,000 ML IVC PRN (13:06)
[2020-04-04 14:23] LABS: Hepatitis B Surface Antigen Nonreactive (Nonreactive)
[2020-04-04 14:52] LABS: Hepatitis B Core IgM Nonreactive (Nonreactive)
[2020-04-04 14:53] LABS: Hepatitis C Virus Antibody Nonreactive (Nonreactive)
[2020-04-04 14:54] LABS: Hepatitis A Antibody IgM Nonreactive (Nonreactive)
[2020-04-04] MEDS ORDERED: Sodium Bicarbonate 75 MEQ in 0.45 % Sodium Chloride 1,000 ML IVC SCH (15:30)
[2020-04-04] MEDS: Insulin LISPRO 300 UNITS/3 ML VIAL SUBQ SCH ×2 (16:32→20:47)
[2020-04-04] MEDS: CycloSPORINE, Mod (Neoral) 25 MG CAPSULE PO SCH (20:45)
[2020-04-04] MEDS: CYCLOSPORINE PO SCH (20:45)
[2020-04-04] MEDS: Famotidine 20 MG TABLET PO SCH (20:47)
[2020-04-04] MEDS ORDERED: CYCLOSPORINE MODIFIED 100 MG PO SCH (21:00)
[2020-04-04] MEDS: (Everolimus [Zortress] 0.5 MG) PO SCH (22:14)
[2020-04-05] MEDS ORDERED: Sodium Bicarbonate 75 MEQ in 0.45 % Sodium Chloride 1,000 ML IVC SCH (01:00)
[2020-04-05] MEDS: Ondansetron 4 MG/2 ML VIAL IVP PRN (04:23)
[2020-04-05] MEDS: amLODIPine 5 MG TABLET PO SCH (07:49)
[2020-04-05] MEDS: calcitrioL 0.25 MCG CAPSULE PO SCH (07:50)
[2020-04-05] MEDS: Aspirin 81 MG TAB.CHEW PO SCH (07:50)
[2020-04-05] MEDS: Famotidine 20 MG TABLET PO SCH ×2 (07:50→21:24)
[2020-04-05] MEDS: Acetaminophen 325 MG TABLET PO PRN (07:50)
[2020-04-05] MEDS: Insulin LISPRO 300 UNITS/3 ML VIAL SUBQ SCH ×4 (07:51→21:31)
[2020-04-05] MEDS: CycloSPORINE, Mod (Neoral) 25 MG CAPSULE PO SCH ×2 (07:53→21:21)
[2020-04-05] MEDS: CYCLOSPORINE PO SCH ×2 (07:53→21:22)
[2020-04-05 08:05] LABS: Hematocrit 48.1 % (37.5-50.1); Hemoglobin 15.3 g/dL (12.9-16.9); Mean Corpuscular HGB Conc 31.8 g/dL (31.6-35.5); Mean Corpuscular Hemoglobin 27.9 pg (28.0-33.3); Mean Corpuscular Volume 87.8 fL (83.0-100.0); Mean Platelet Volume 10.5 fL (9.4-12.4); Platelet Count 258 K/mcL (140-400); Red Blood Count 5.48 M/mcL (4.19-5.50); Red Cell Distribution Width 15.8 % (11.5-14.5); White Blood Count 9.2 K/mcL (4.3-11.1)
[2020-04-05 08:33] LABS: Calcium 9.5 mg/dL (8.6-10.3); Potassium 4.2 mEq/L (3.5-5.1)
[2020-04-05 08:52] LABS: Basophils # 0.4 K/mcL (0.0-0.2); Monocytes # 2.9 K/mcL (0.0-1.3); Neutrophils # 3.9 K/mcL (1.6-8.9); Platelet Estimate Normal (Normal); Smudge Cells Present (Not Present)
[2020-04-05] MEDS: (Everolimus [Zortress] 0.5 MG) PO SCH ×2 (10:17→23:04)
[2020-04-05 11:24] LABS: Adenovirus Not Detected (Not Detect); Coronavirus 229E Not Detected (Not Detect); Coronavirus HKU1 Not Detected (Not Detect); Coronavirus NL63 Not Detected (Not Detect); Coronavirus OC43 Not Detected (Not Detect)
[2020-04-05 11:25] LABS: Bordetella Pertussis Not Detected (Not Detect); Chlamydophila pneumoniae Not Detected (Not Detect); Human Metapneumovirus Not Detected (Not Detect); Human Rhinovirus/Enterovirus Not Detected (Not Detect); Influenza A Subtype 2009 H1 Not Detected (Not Detect); Influenza B Not Detected (Not Detect); Mycoplasma pneumoniae Not Detected (Not Detect); Parainfluenza Virus 1 Not Detected (Not Detect); Parainfluenza Virus 2 Not Detected (Not Detect); Parainfluenza Virus 3 Not Detected (Not Detect); Parainfluenza Virus 4 Not Detected (Not Detect); Respiratory Syncytial Virus Not Detected (Not Detect); SARS-CoV-2 Not Detected (Not Detect)
[2020-04-05] MEDS: Sodium Bicarbonate 75 MEQ in 0.45 % Sodium Chloride 1,000 ML IVC SCH (16:45)
[2020-04-05] MEDS: *HR* Heparin 5,000 UNIT/ML VIAL SQ SCH ×2 (16:46→17:15)
[2020-04-05 18:37] LABS: Albumin 3.6 g/dL (3.5-5.7); Bilirubin,Direct 0.1 mg/dL (0.0-0.2); Bilirubin,Indirect 0.6 mg/dL (0.0-1.0); Bilirubin,Total 0.7 mg/dL (0.3-1.0); Globulin 3.6 g/dL (2.4-3.5); Total Protein 7.2 g/dL (6.4-8.9)
[2020-04-06] MEDS ORDERED: Saline Nasal Spray 44 ML BOTTLE NS PRN (02:46)
[2020-04-06] MEDS: Sodium Bicarbonate 75 MEQ in 0.45 % Sodium Chloride 1,000 ML IVC SCH (03:37)
[2020-04-06] MEDS: Acetaminophen 325 MG TABLET PO PRN (03:41)
[2020-04-06] MEDS: *HR* Heparin 5,000 UNIT/ML VIAL SQ SCH (05:13)
[2020-04-06 07:01] LABS: Hematocrit 50.4 % (37.5-50.1); Mean Corpuscular HGB Conc 31.7 g/dL (31.6-35.5); Mean Corpuscular Hemoglobin 27.5 pg (28.0-33.3); Mean Corpuscular Volume 86.6 fL (83.0-100.0); Mean Platelet Volume 10.6 fL (9.4-12.4); Nucleated Red Blood Cells 0.2 /100 WBC (0); Platelet Count 248 K/mcL (140-400); Red Blood Count 5.82 M/mcL (4.19-5.50); Red Cell Distribution Width 15.9 % (11.5-14.5); White Blood Count 8.3 K/mcL (4.3-11.1)
[2020-04-06 07:55] LABS: Calcium 9.7 mg/dL (8.6-10.3)
[2020-04-06 08:14] VITALS: BP 158/85
[2020-04-06 08:15] LABS: Lymphocytes # 2.3 K/mcL (0.6-4.6); Monocytes # 2.2 K/mcL (0.0-1.3); Neutrophils # 3.8 K/mcL (1.6-8.9)
[2020-04-06 08:16] LABS: Platelet Estimate Normal (Normal); Reactive Lymphocytes Present (Not Present)
[2020-04-06] MEDS: amLODIPine 5 MG TABLET PO SCH (08:19)
[2020-04-06] MEDS: calcitrioL 0.25 MCG CAPSULE PO SCH (08:19)
[2020-04-06] MEDS: Aspirin 81 MG TAB.CHEW PO SCH (08:19)
[2020-04-06] MEDS: Famotidine 20 MG TABLET PO SCH (08:19)
[2020-04-06] MEDS: CYCLOSPORINE PO SCH (08:20)
[2020-04-06] MEDS: CycloSPORINE, Mod (Neoral) 25 MG CAPSULE PO SCH (08:21)
[2020-04-06] MEDS: Insulin LISPRO 300 UNITS/3 ML VIAL SUBQ SCH (08:22)
[2020-04-06] MEDS: (Everolimus [Zortress] 0.5 MG) PO SCH (11:09)
== END 2020-04-06 11:05 | disposition home or self-care (01) | DRG 699 ==
LOC: EMEROOARM 22:54 → 2ANU 22:54
PROVIDERS: ADMIT Internal Medicine; ATTEND Internal Medicine